=== PATIENT | female | born 1990 | race Caucasian/White ===

== ENCOUNTER → 2025-03-05 | Outpatient (CLI) | payer OTHER ==
[~2025-03-05] MED LIST: HYDACE5 PO
[2025-03-10 16:29] LABS: HPV HIGH RISK BY TMA Not Detected; HPV SOURCE Cervical
== END ==
LOC: LAB 13:05 → LAB SHORT 13:05
PROVIDERS: Family Medicine
DX: Z01.419 Encounter for gynecological examination (general) (routine) without abnormal findings (principal)
CPT/HCPCS: 87624; G0123